=== PATIENT | male | born 1970 | race Two or more races ===

== ENCOUNTER 2019-03-23 18:26 | Emergency (ER) | payer SELFPAY ==
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
--- NOTE | 2019-03-23 18:36 | NUR ---
PT A/O X 4 DOES NOT APPEAR TO BE IN PHYSICAL DISTRESS
== END 2019-03-23 21:46 ==
LOC: ER 18:28
DX: F10.920 Alcohol use, unspecified with intoxication, uncomplicated (principal); I10 Essential (primary) hypertension; E11.9 Type 2 diabetes mellitus without complications; V87.7XXA Person injured in collision between other specified motor vehicles (traffic), initial encounter; Y93.89 Activity, other specified; Y92.488 Other paved roadways as the place of occurrence of the external cause; Y99.8 Other external cause status; Y90.9 Presence of alcohol in blood, level not specified
CPT/HCPCS: 99283